=== PATIENT | female | born 1940 | race African-American/Black ===

== ENCOUNTER → 2018-08-15 | Outpatient (CLI) | payer OTHER ==
[~2018-08-15] VITALS: Ht 157.5 cm; Wt 113.4 kg
[~2018-08-15] MED LIST: ALDACTONE50 MG PO; BENICAR40 MG PO; COREG25 MG PO; LASIX 40 MG TAB40 M2 PO; PRILOSEC 20 MG20 MG PO; VASOTEC10 MG PO; ZANAFLEX4 MG PO
--- NOTE | ~2018-08-15 | CATHLAB ---
[facility] [place] [place] [address] INVASIVE PROCEDURE REPORT Name: ENRIQUE ANTHONY Room #: REG Greta#: [id number] Admission: 08/15/18 Attend Phys: Yusef Torre, Discharge: Date of : 44 Date of Service: 08/15/18 1307 Report #: [id number] THIS REPORT FOR: //name// APPROVED REPORT Study performed: 08/15/2018 09:27:57 Patient Details Patient Status: Out-Patient Room #: The patient is a 77 year-old female Event Personnel Yusef Torre Activities Attendant, Enrique Barahona RN RN, Thalia Ibarra RTR, ROAD GRADER OPERATOR Monitor, Ramin Blount Scrkylah Procedures Performed Art Access - R femoral artery* Left Heart Cath w/or w/o Coronaries [id number] C , Left Heart [id number] Initial Mod Sed Same Phys/QHP Gr5y [id number] Hemostasis w/ Mynx , Abdominal Aortography; Renal Bilateral Peripheral Angiography Indication Positive stress test Procedure Narrative The Right Groin^ was infiltrated with 1% Lidocaine subcutaneous anesthesia. A PINNACLE 6FR Sheath #[id number] sheath was inserted into the RFA^. Coronary angiography was performed using coronary diagnostic catheters. The right coronary system was accessed and visualized with a JR4 catheter. The left coronary system was accessed and visualized with a JL4 catheter. The left ventricle was accessed and visualized with a Pigtail catheter. Left ventriculogram was performed in 30 degree projection. An aortogram of the abdominal aorta was performed. Pre-demployment femoral angiogram was performed . Closure device was deployed with a 6 Fr MYNXGRIP 6/7F #[id number]. The patient tolerated the procedure well and there were no complications associated with the procedure. There was no hematoma. Intraoperative Conscious Sedation Sedation start time: 09:37 Case end Time: 09:53 Fentanyl 50 mcg Versed 1 mg Fluoro Time: 1.34 minutes Dose: DAP 4258.00 cGycm2 446 mGy [facility] [address] [place] [address] INVASIVE PROCEDURE REPORT Name: [id number] Admission: 08/15/18 Attend Phys: Yusef Torre, Discharge: Date of : 44 Date of Service: 08/15/18 1307 Report #: [id number] Contrast Type and Amount: Omnipaque 95 ml Hemodynamics The aortic pressure is 191/68 mmHg with a mean of 119 mmHg. The left ventricular pressure is 202/9 mmHg with a mean of mmHg. The left ventricular end diastolic pressure is 32 mmHg. Conclusion #1 normal left ventricular size LV function lower limits of normal EF 50-55% #2 left main free of disease giving rise to LAD and circumflex #3 LAD extends to the apex. There is a 3040% mid vessel at the diagonal takeoff and then a diffusely diseased apical segment which is small and somewhat atraumatic. No indication for intervention #4 circumflex OM nondominant widely patent #5 dominant right coronary artery widely patent #6 left renal artery is a bifurcating large system with mild irregularity #7 right renal artery is single and widely patent. Recommendations and plan continue aggressive risk factor modification. Has labile hypertension. It is not on the basis of renal artery stenosis as noted above widely patent renal arteries. Olme Jono 40 mg has been initiated with the other medications. <ELECTRONICALLY SIGNED> By: Yusef Torre MD, FACC 08/15/18 1307 130 130 Yusef Torre MD, FACC /INF
[2018-08-15 07:10] VITALS: BP 163/104
[2018-08-15 07:10] LABS: HEMATOCRIT 38.8 % (37.0-47.0); HEMOGLOBIN 12.9 gm/dL (12.0-15.0); MCH 28.5 pg (26.0-34.0); MCHC 33.2 g/dL (28.0-37.0); MCV 85.9 fL (80.0-100.0); RBC 4.52 mil/uL (4.20-5.00); RDW 14.7 % (10.5-14.5); WBC 9.4 thou/uL (4.0-11.0)
[2018-08-15 07:16] LABS: CALCIUM 9.3 mg/dL (8.5-10.1); CREATININE 0.9 mg/dL (0.6-1.0); POTASSIUM 3.8 mmol/L (3.5-5.1)
== END | disposition home or self-care (01) ==
LOC: CATH 08-14 07:16
PROVIDERS: Internal Medicine Cardiovascular Disease
DX: I25.10 Atherosclerotic heart disease of native coronary artery without angina pectoris (principal); I73.9 Peripheral vascular disease, unspecified; I10 Essential (primary) hypertension; Z87.891 Personal history of nicotine dependence; R06.02 Shortness of breath; E11.9 Type 2 diabetes mellitus without complications; Z82.49 Family history of ischemic heart disease and other diseases of the circulatory system; K21.9 Gastro-esophageal reflux disease without esophagitis; E66.9 Obesity, unspecified

== ENCOUNTER → 2018-10-31 | Outpatient (CLI) | payer OTHER ==
--- NOTE | 2018-10-31 17:39 | 2DMMODE ---
[facility] [employer] [place] [place] [address] 2 D/M-MODE ECHOCARDIOGRAM Name: ENRIQUE ANTHONY Room #: REG [facility]#: [id number] ������������� Admission: 10/31/18 ������������� Attend Phys: Yusef Torre, Discharge: ��� ������������� ��� Date of : 44 Date of Service: 10/31/18 1739 �� Report #: [id number] �������� ��������������������������������������������[id number] THIS REPORT FOR: //name// APPROVED REPORT Study performed: 10/31/2018 12:58:31 EXAM: Comprehensive 2D, Doppler, and color-flow Echocardiogram Patient Location: Out-Patient Room #: Echo lab 2 Status: routine BSA: 2.07 HR: 53 bpm BP: 148/82 mmHg Rhythm: NSR Other Information Study Quality: Good Indications Dyspnea Hypertension/HDD 2D Dimensions RVDd: 40.03 mm IVSd: 12.59 (7-11mm) LVOT Diam: 22.32 (18-24mm) LVDd: 52.03 mm PWd: 13.16 (7-11mm) Ascending Ao: 35.51 (22-36mm) LVDs: 35.13 (25-40mm) Aortic Root: 33.62 mm IVC: 11.00 mm Volumes Left Atrial Volume (Systole) Single Plane 4CH: 55.46 mL Single Plane 2CH: 61.78 mL LA ESV Index: 32.00 mL/m2 Aortic Valve AoV Peak Adelfo.: 1.61 m/s AO Peak Gr.: 10.34 mmHg LVOT Max P.10 mmHg LVOT Max V: 1.01 m/s KEON Vmax: 2.46 cm2 AI Vmax: 3.83 m/s AI [place]m: 1.52 m/s2 AI PHT: 728.40 ms [facility] [employer] [place] [place] [address] 2 D/M-MODE ECHOCARDIOGRAM [facility] [id number] ������������� Admission: 10/31/18 ������������� Attend Phys: Yusef Torre, Discharge: ��� ������������� ��� Date of : 44 Date of Service: 10/31/18 1739 �� Report #: [id number] �������� ��������������������������������������������[id number] Mitral Valve E/A Ratio: 0.8 MV Decel. Time: 385.11 ms MV E Max Adelfo.: 0.67 m/s MV A Adelfo.: 0.82 m/s MV PHT: 111.68 ms IVRT: 138.41 ms Pulmonary Valve PV Peak Adelfo.: 1.00 m/s PV Peak Gr.: 4.09 mmHg Pulmonary Vein P Vein S: 0.38 m/s P Vein A: 0.29 m/s P Vein D: 0.22 m/s P Vein A Dur.: 106.1 msec P Vein S/D Ratio: 1.73 Tricuspid Valve TR Peak Adelfo.: 2.84 m/s TR Peak Gr.: 32.16 mmHg PA Pressure: 37.00 mmHg Left Ventricle The left ventricle is normal size. There is normal LV segmental wall motion. Mild concentric left ventricular hypertrophy. The left ventricular systolic function is normal. The left ventricular ejection fraction is within the normal range. LVEF is 60-65%. Grade I - abnormal relaxation pattern. Right Ventricle The right ventricle is normal size. The right ventricular systolic function is normal. Atria The left atrium size is normal. Right atrium is at the upper limits of normal. Aortic Valve The aortic valve is normal in structure. Aortic valve is calcified. Mild aortic regurgitation. There is no aortic valvular stenosis. Mitral Valve The mitral valve is normal in structure. There is no mitral valve regurgitation noted. No evidence of mitral valve stenosis. Tricuspid Valve [address] [address] 2 D/M-MODE ECHOCARDIOGRAM Name: ENRIQUE ANTHONY Room #: TANI HookerEddGinaEdd#: [id number] ������������� Admission: 10/31/18 ������������� Attend Phys: Yusef Torre, Discharge: ��� ������������� ��� Date of : 44 Date of Service: 10/31/18 1739 �� Report #: [id number] �������� ��������������������������������������������[id number] The tricuspid valve is normal in structure. There is trace tricuspid regurgitation. Estimated PAP 37 mmHg. There is mild pulmonary hypertension. Pulmonic Valve The pulmonary valve is normal in structure. Trace pulmonic regurgitation. Great Vessels The aortic root is normal in size. IVC is normal in size and collapses >50% with inspiration. Pericardium There is no pericardial effusion. <Conclusion> The left ventricle is normal size. Mild concentric left ventricular hypertrophy. LVEF is 60-65%. Grade I - abnormal relaxation pattern. The right ventricle is normal size. The left atrium size is normal. The aortic valve is normal in structure. Aortic valve is calcified. Mild aortic regurgitation. There is no mitral valve regurgitation noted. There is trace tricuspid regurgitation. Estimated PAP 37 mmHg. There is mild pulmonary hypertension. The aortic root is normal in size. There is no pericardial effusion. ��������������������������������������������� <ELECTRONICALLY SIGNED> ���������������������������������������� By: Yusef Torre MD, FACC ��������������������������������������������� 10/31/18 1739 1739 [id number] Yusef Torre MD, FACC /INF
== END ==
LOC: CV 09:29
DX: I35.8 Other nonrheumatic aortic valve disorders (principal); I35.1 Nonrheumatic aortic (valve) insufficiency; I11.9 Hypertensive heart disease without heart failure; I15.9 Secondary hypertension, unspecified; I27.20 Pulmonary hypertension, unspecified

== ENCOUNTER → 2019-11-17 | Outpatient (CLI) | payer OTHER | LOC: SJCVC 13:25 | PROVIDERS: ATTEND Internal Medicine Cardiovascular Disease | DX: I45.10 Unspecified right bundle-branch block (principal); I25.10 Atherosclerotic heart disease of native coronary artery without angina pectoris; E78.00 Pure hypercholesterolemia, unspecified; I11.0 Hypertensive heart disease with heart failure; I50.33 Acute on chronic diastolic (congestive) heart failure; Z82.49 Family history of ischemic heart disease and other diseases of the circulatory system; Z79.82 Long term (current) use of aspirin ==

== ENCOUNTER → 2020-07-27 | Outpatient (CLI) | payer OTHER | LOC: SJCVCIMAG 06-30 07:35 | PROVIDERS: ATTEND Internal Medicine Cardiovascular Disease | DX: I08.3 Combined rheumatic disorders of mitral, aortic and tricuspid valves (principal); I11.9 Hypertensive heart disease without heart failure; R94.31 Abnormal electrocardiogram [ECG] [EKG]; I45.10 Unspecified right bundle-branch block; I25.10 Atherosclerotic heart disease of native coronary artery without angina pectoris; E78.00 Pure hypercholesterolemia, unspecified; Z79.899 Other long term (current) drug therapy; Z87.891 Personal history of nicotine dependence ==

== ENCOUNTER → 2021-05-05 | Outpatient (CLI) | payer OTHER | LOC: SJCVC 13:31 | PROVIDERS: ATTEND Internal Medicine Cardiovascular Disease | DX: R94.31 Abnormal electrocardiogram [ECG] [EKG] (principal); I45.10 Unspecified right bundle-branch block; I25.10 Atherosclerotic heart disease of native coronary artery without angina pectoris; I10 Essential (primary) hypertension; E78.00 Pure hypercholesterolemia, unspecified; I07.1 Rheumatic tricuspid insufficiency; Z87.891 Personal history of nicotine dependence; Z79.899 Other long term (current) drug therapy; Z88.0 Allergy status to penicillin ==